=== PATIENT | female | born 1975 | race Hispanic/Latino ===

== ENCOUNTER 2018-05-20 05:52 | Day surgery (SDC) | payer BC ==
[2018-05-19 17:26] LABS: Absolute Lymphocytes (CBC) 1.7 K/uL (0.7-4.9); Absolute Monocytes 0.4 K/uL (0.1-1.3); Absolute Neutrophil 3.5 K/uL (1.8-8.0); Basophils % 0.4 % (0-1.3); Eosinophils % 0.6 % (0-4.4); Hematocrit 37.4 % (36.0-45.0); Lymphocytes % 29.6 % (15.3-44.8); MCH 29.3 pg (27.0-35.0); MCV 89.4 fL (80-100); Monocytes % 6.7 % (3.3-12.3); RBC Red Blood Cell Count 4.19 M/uL (3.86-4.86)
--- NOTE | 2018-05-19 20:32 | PREOPHP ---
Date of Admission: 05/19/2018 History Of Present Illness: Ms. Byrd is a 42-year-old female, 3, para 2-0-1-2, who is status post tubal ligation. She is admitted for vaginal hysterectomy for menorrhagia. Endom etrial biopsy is benign. Ultrasound seems to show an enlarged bulky uterus, but no discrete leiomyom rocky. She is scheduled for vaginal hysterectomy for treatment. Past Medical And Surgical History: Includes 2 prior vaginal deliveries, prior tubal ligation and she has no other significant hospitalizations, accidents, illnesses, or injuries. She is on no medicati ons on regular basis. Allergies: SHE HAS NO KNOWN ALLERGIES, ALTHOUGH SHE HAS PROBLEMS WITH NAUSEA WITH CODEINE. SHE DOES NOT SMOKE. Family History: Significant for father with diabetes. Mother with blood pressure problems, otherwis e noncontributory. Review of Systems: She reports no recent cough, cold, fever, or chills. No recent nausea or vomiting. She denies any b reast lumps. She denies any bowel or bladder issues. Physical Examination: General: Reveals a pleasant female, in no apparent distress. Neck: Supple without adenopathy or thyromegaly. Lungs: Clear. Cardiac: Regular rate and rhythm without murmurs. Breasts: Not examined. Abdomen: Without organosplenomegaly. Pelvic: Normal female external genitalia. Vaginal wall is pink, rugated. Cervix, multiparous. Bim anual, no abnormalities. Plan: The patient will undergo vaginal hysterectomy. Risks and benefits are discussed. She has sig sen operative permit in my presence. FARZANA Voice ID: [id number]
--- NOTE | 2018-05-20 00:32 | EKG ---
Test Date: 2018-05-19 Test Time: 16:38:05 Corporate Tutor: EBER MEASUREMENT RESULTS: Intervals: Rate: 56 GA: 120 QRSD: 86 QT: 450 QTc: 434 [place]: P: 39 GA: 120 QRS: 45 T: 69 INTERPRETIVE STATEMENTS: Sinus bradycardia with sinus arrhythmia Nonspecific T wave abnormality Abnormal ECG No previous ECG available for comparison Electronically Signed On 05-20-18 00:31:56 CDT by Everett Le
[2018-05-20 06:07] LABS: Specific Gravity 1.025 (1.005-1.030)
[2018-05-20] MEDS ORDERED: CEFAZOLIN/SWI 1gm 2 GM/20 ML SYR ONE (06:08)
[2018-05-20] MEDS ORDERED: Ringers Lactate 1,000 ML IV ONE ×2 (06:08→08:15)
[2018-05-20] MEDS ORDERED: FUROSEMIDE 20 MG/ 2ML VIAL ONE (06:58)
[2018-05-20] MEDS ORDERED: METHYLENE BLUE 0.5% 10 ML AMP ONE (06:59)
[2018-05-20] MEDS ORDERED: SULFANILAMIDE 15% VAG CREAM VAG ONE (06:59)
[2018-05-20] MEDS ORDERED: SCOPOLAMINE HYDROBROMIDE PATCH TD ONE (07:08)
[2018-05-20] MEDS ORDERED: PROPOFOL 200 MG/20 ML VIAL IV ONE (07:09)
[2018-05-20] MEDS ORDERED: LIDOCAINE 2% MPF 5 ML VIAL ONE (07:10)
[2018-05-20] MEDS ORDERED: MIDAZOLAM HCL 2 MG/2 ML INJ ONE (07:10)
[2018-05-20] MEDS ORDERED: GLYCOPYRROLATE 0.2 MG/ML SYR ONE ×2 (07:10→07:33)
[2018-05-20] MEDS ORDERED: FENTANYL CITR 250 MCG/5 ML ONE (07:11)
[2018-05-20] MEDS ORDERED: ROCURONIUM 50 MG/5 ML VIAL IV ONE (07:14)
[2018-05-20] MEDS ORDERED: NEOSTIGMINE 1 MG/ML -5 ML SYRINGE ONE (07:14)
[2018-05-20] MEDS ORDERED: ONDANSETRON HCL 40 MG/20 ML VIAL ONE (07:14)
[2018-05-20] MEDS ORDERED: VASOPRESSIN 20 UNIT/ML VIAL ONE (07:40)
[2018-05-20] MEDS ORDERED: NS 0.9% VIAL 10 ML ONE ×2 (07:41→07:42)
[2018-05-20] MEDS ORDERED: DEXAMETHASONE 4 MG/ML VIAL ONE ×2 (07:48→07:50)
[2018-05-20] MEDS ORDERED: MORPHINE/NS PCA 50 MG/50 ML PCA.SYRING IV PRN (09:22)
[2018-05-20] MEDS ORDERED: NALOXONE 0.4 MG/ML VIAL IV PRN (09:22)
[2018-05-20] MEDS: MEPERIDINE HCL 50 MG/ML AMP ONE ×8 (09:25→10:25)
--- NOTE | 2018-05-20 09:25 | P.BOP ---
Preoperative diagnosis: Mennorrhagia Postoperative diagnosis: same Primary procedure: TVH Sleeve Baster: Madhuri López Estimated blood loss: 150ml Specimen: Uterus Anesthesia: General Complications: None Drain(s): Urinary catheter Transferred to: Recovery Room Condition: Good
[2018-05-20] MEDS ORDERED: KETOROLAC 30 MG/ML INJ ONE (10:08)
[2018-05-20 10:37] VITALS: O2SAT 96
[2018-05-20] MEDS: Ringers Lactate 1,000 ML IV SCH ×2 (12:30→21:10)
[2018-05-20 13:50] VITALS: BMI 32.3
[2018-05-20] MEDS: KETOROLAC 30 MG/ML INJ IV PRN (16:05)
[2018-05-21] MEDS: Ringers Lactate 1,000 ML IV SCH (04:39)
[2018-05-21] MEDS ORDERED: Oxycodone HCl/Acetaminophen 1 TAB TAB PO PRN ×2 (07:16)
[2018-05-21] MEDS ORDERED: IBUPROFEN 200 MG TAB PO PRN (07:17)
[2018-05-21 08:27] VITALS: BP 107/43; TEMP 97
[2018-05-21] MEDS: KETOROLAC 30 MG/ML INJ IV PRN (09:53)
--- NOTE | 2018-05-21 18:39 | OP ---
Surgeon: Casper Haro MD Fashion Stylist: Dr. López. Anesthesiologist: Porsche Vallejo CRNA and Dr. Jose J Roth. Preoperative Diagnosis: Menorrhagia. Procedure: Vaginal hysterectomy. Postoperative Diagnosis: Menorrhagia. Description Of Procedure: After satisfactory level of anesthesia was obtained, the patient was prepp ed and draped in the usual fashion in high leg holders. A weighted speculum was placed in posterior vagina, cervix was visualized, grasped initially with single-tooth tenaculum then an [facility] clamp. The paracervical tissue was infiltrated with dilute solution of Pitressin. A circumferential incision wa s made. Initially dissection was before the bladder flap. Once this was recognized, a bladder flap identified and the bladder dissected away anteriorly and the anterior peritoneum entered after a post erior colpotomy had been performed and uterosacral ligaments had been clamped, cut, and suture ligate d with fixation sutures of 0 Vicryl. The cardinal ligaments were likewise clamped, cut, and fixated and sutured with 0 Vicryl suture. These suture tags were retained. Lateral supporting avascular tis kathleen of the uterus was progressively clamped, cut, and suture ligated with 0 Vicryl suture. Martell cl amps were passed around the utero-ovarian ligaments, cut and one fixed suture of 0 Vicryl was placed in a free tie behind this on either pedicle. These were cut and the uterus was removed. These pedic les were inspected and there was a lower area of bleeding on the right. An additional suture of 0 Vi cryl was placed around this area with good control. The peritoneum was difficult to identify anterio r. The cuff was closed with inverted [id number] sutures of 0 Vicryl with good hemostasis noted. Maria catheter placed. The patient was awakened, extubated, and taken to recovery room in satisfac tory condition. She had received 2 g of Ancef for antibiotic prophylaxis. Estimated Total Blood Loss: Less than 150 cc. IJEOMA/ANNABEL Voice ID: [id number] Report ID: [id number]
--- NOTE | 2018-05-22 05:33 | DS ---
Date of Discharge: 05/21/2018 Final Hospital Discharge Diagnosis: Menorrhagia. Complications: None. Procedures: Vaginal hysterectomy. Hospital Course: The patient is a 42-year-old female, admitted for treatment of menorrhagia . She underwent vaginal hysterectomy, was dismissed on the following day to be seen back in my offic e in 2 weeks. She will be provided with a prescription for Percocet 5/325, #15. Lab work obtained d uring this hospital stay included an admission hemoglobin and hematocrit of 12.3/37.4, negative urine hCG, and she has O negative blood type. She was dismissed with usual post vaginal hysterectomy acti vity restrictions. IJEOMA/ANNABEL Voice ID: [id number] Report ID: [id number]
== END 2018-05-21 11:45 | disposition home or self-care (01) ==
LOC: OR 05:52 → 2ND-WC 09:41 → OR 05-21 11:45
PROVIDERS: ATTEND Specialist
PROC: 0UT97ZZ Resection of Uterus, Via Natural or Artificial Opening (ICD-10-PCS; principal; 2018-05-20 07:30)
DX: N92.0 Excessive and frequent menstruation with regular cycle (principal); N72 Inflammatory disease of cervix uteri; N88.8 Other specified noninflammatory disorders of cervix uteri; Z83.3 Family history of diabetes mellitus; Z82.49 Family history of ischemic heart disease and other diseases of the circulatory system
CPT/HCPCS: 36415; 81025; 85025; 86850; 86900; 86901; 88305; 88307; 93005; J0690; J1940; J2175; J2250; J2270; J2405; J2710